=== PATIENT | male | born 1990 | race Hispanic/Latino ===

== ENCOUNTER 2024-10-15 08:55 | Emergency (ER) | payer SELFPAY ==
[2024-10-15 09:02] VITALS: BP 138/87
--- NOTE | 2024-10-15 09:31 | ED.MUSCINJ ---
HPI-Injury
General
Chief Complaint: Musculo-Skeletal Complaint
Source: patient
Exam Limitations: none
Time Seen by Provider: 10/15/24 09:24
History of Present Illness-Injury
Initial Injury comments:
34-year-old male presents complaining of left foot pain starting last night. He fell down 5 steps. He notes swelling and pain to the left foot but denies any knee or humphrey pain. No other complaints
Phy Exam
Physical Exam
Physical Exam:
General: Well-appearing male no acute respiratory distress
Musculoskeletal exam: Left foot swollen ecchymotic and tender over the midfoot. The ankle is nontender he is able to move all of his toes. Able to dorsiflex and plantarflex the ankle. Compartments are soft he has 2+ DP pulse to the left foot with
good sensation to all the toes
Skin is intact
Injury Course
Orders/Labs/Results
Orders:
Orders
10/15/24 09:06
Foot, Left 3 View [CR Foot - Left Min 3 Views] Urgent
Comment:
Reason For Exam: injury
MDM/Problems Addressed
Differential Diagnosis Includes:
Left foot pain after fall. Consider contusion versus fracture
I personally reviewed x-rays of left foot which demonstrate nondisplaced fracture of the proximal portion of the second metatarsal. Tarsometatarsal joint appears intact.
Patient will be placed in a walking boot and given crutches for support and will be advised follow-up with orthopedics
*Critical Care Note
Total Time (30-74mins, 75-104mins- exclusive of procedures): Not Applicable
ED Attending Note
-
Portions of this chart may have been created with voice recognition software.� Occasional wrong word or��sound alike� substitutions may have occurred due to the inherent limitations of voice recognition software.
Discharge Plan
Departure
Patient Disposition: Home (Routine Discharge)
Date of Disposition: 10/15/24
Time of Disposition: 09:33
Patient with high blood pressure during this ER visit?: No
Discharge Problem:
Foot fracture, left
Instructions: Muscle and Bone Pain (DC)
Prescriptions:
No Action
No Current Medications
0
Referrals:
Oz Phelan MD [Active] -
Activity Restrictions/Additional Instructions:
Use Tylenol or ibuprofen for pain. Elevate foot for swelling. Use boot for support and crutches for ambulation. Follow-up with orthopedic
Interventions
Interventions:
*Risk Screen - Suicide Last Done: 10/15/24 09:02
*Neglect/Abuse Screening Last Done: 10/15/24 09:02
Discharge Date and Time
Print Language: TANZANIAN
[2024-10-15 09:53] VITALS: BP 136/81; BMI 25.8
== END 2024-10-15 10:20 | disposition home or self-care (01) ==
LOC: EMR 08:55
PROVIDERS: EMERGENCY PHYSICIAN Emergency Medicine
DX: S92.325A Nondisplaced fracture of second metatarsal bone, left foot, initial encounter for closed fracture (principal); W10.9XXA Fall (on) (from) unspecified stairs and steps, initial encounter
CPT/HCPCS: 99283; 73630